=== PATIENT | male | born 1975 | race Caucasian/White ===

== ENCOUNTER 2020-04-11 10:15 | Emergency (ER) | payer MEDICAID, SELFPAY ==
[2020-04-11 10:17] VITALS: BP 114/56; PULSE 107; RESP 18; TEMP 36.1; O2SAT 94; BMI 38.0
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
[2020-04-11] MEDS: Ketorolac 60 MG/2 ML Vial IM (10:45)
[2020-04-11] MEDS: Orphenadrine 60 MG/2 ML Ampul IM (10:45)
== END 2020-04-11 11:17 | disposition home or self-care (01) ==
LOC: ED 10:52
PROVIDERS: Emergency Provider Emergency Medicine; PCP Internal Medicine
DX: M54.2 Cervicalgia (principal); R20.0 Anesthesia of skin; G89.29 Other chronic pain; Z72.0 Tobacco use
CPT/HCPCS: 96372; 99282

== ENCOUNTER 2020-04-29 16:42 | Emergency (ER) | payer MEDICAID, SELFPAY ==
[2020-04-29 16:43] VITALS: BP 113/91; PULSE 18; RESP 14; TEMP 36.6; O2SAT 97; BMI 32.0
--- NOTE | 2020-04-29 16:47 | RAD_ITS ---
STUDY: X-RAY CHEST REASON FOR EXAM: Male, 44 years old. Patient thinks he swallowed a nail. TECHNIQUE: Single AP portable view of the chest. COMPARISON: 09/01/2012. FINDINGS: No opaque foreign body is seen within the confines of the study. The lungs are clear and expanded. There is no demonstrated pleural abnormality. Normal size heart. Normal mediastinum and marc. Normal visualized pulmonary arteries. Normal visualized aortic arch and descending thoracic aorta. No visualized osseous changes. There is no demonstrated abnormality of the visualized soft tissue structures of the upper abdomen. RAD/Chest 1 View IMPRESSION: 1. No evidence of a nail or other opaque foreign body. 2. No acute cardiopulmonary disease or major interval change. Electronically Signed: Eric Ralph DO at 17:05 EDT Tel [phone], Service support ,
--- NOTE | 2020-04-29 16:47 | RAD_ITS ---
STUDY: X-RAY - SOFT TISSUE NECK REASON FOR EXAM: Male, 44 years old. Patient thinks he swallowed a nail. TECHNIQUE: 2 view(s) of the neck were obtained. COMPARISON: Chest, 04/29/2020. FINDINGS: Normal visualized nasopharynx, oropharynx, hypopharynx. Normal epiglottis. Normal visualized subglottic tracheal air column. Normal prevertebral soft tissue structures. Normal visualized osseous structures. The soft tissue structures are unremarkable. There is no foreign body other than a tongue piercing. RAD/Neck for Soft Tissue IMPRESSION: No evidence of nail or other foreign body within the airway or esophagus. Electronically Signed: Eric Ralph DO at 17:06 EDT Tel [phone], Service support ,
--- NOTE | 2020-04-29 18:31 | ED.DCSUM_ITS ---
History of Present Illness Chief Complaint: Foreign Body Informant: Patient Narrative: 44-year-old male presents with concern he swallowed a nail. He states he was holding miya nails in his mouth while he was trying to put shingles on a roof. Concerned that he swallowed 1. He has foreign body sensation in his throat. He states that he has some nausea and a metallic taste in his mouth. He states he has abdominal pain but he feels like it is musculoskeletal because he works hard. - Past Medical History (1) Antisocial personality disorder Status: Chronic Past Medical History - Allergies and Home Meds Allergies/Adverse Reactions: Allergies nickel Allergy (Verified 04/29/20 16:43) Rash poison be extract Allergy (Verified 04/29/20 16:43) Rash Primary Care Physician: Jeancarlos Stafford MD [Primary Care Provider] - Past Medical History: - - Reviewed and problem list Surgical History: noncontributory Lives: Spouse/ Significant Other Smoking Status: Current every day smoker Drugs: None Review of Systems General: Denies: Chills, Fever, Sweats Eyes: Denies: Visual changes - bilaterally, Diplopia ENT: Denies: Rhinorrhea, Sore throat Cardiovascular: Denies: Chest pain, Palpitations Respiratory: Denies: Dyspnea, Cough, Dyspnea on exertion Gastrointestinal: Reports: Abdominal pain - Generalized, Nausea. Denies: Vomiting Genitourinary: Denies: Dysuria, Hematuria Musculoskeletal: Denies: Myalgias, Arthralgias Skin: Denies: Rash, Abscess Neurological: Denies: Headache Physical Exam Vital Signs/Narrative: Vital Signs Temp Pulse Resp BP Pulse Ox 04/29/20 16:43 97.8 F 18 L 14 113/91 H 97 Inital Vital Signs reviewed: Yes General: Well nourished, No Acute Distress Head: Normocephalic Eyes: Perrl, EOMI ENT: Moist mucous membranes Cardiovascular: Regular rate, Regular rhythm Respiratory: No distress Abdomen: Soft, Nontender. Negative for: Guarding, Rebound tenderness Back: Nontender Extremities: No edema, Tenderness Skin: Normal color, No rash Neurological: Alert, Oriented x3 Psychological: Normal affect Diagnostic/Tx/Re-eval Clinical Impression(s) from Imaging Studies Chest X-Ray 04/29/20 16:47 IMPRESSION: 1. No evidence of a nail or other opaque foreign body. 2. No acute cardiopulmonary disease or major interval change. Electronically Signed: Eric [place] nicci at 17:05 EDT Tel [phone], Service support , Soft Tissue Neck X-Ray 04/29/20 16:47 IMPRESSION: No evidence of nail or other foreign body within the airway or esophagus. Electronically Signed: Eric Ralph DO at 17:06 EDT Tel [phone], Service support , KUB X-Ray 04/29/20 18:40 IMPRESSION: Normal x-ray examination of the abdomen and pelvis. There is no opaque foreign body within the abdomen. Electronically Signed: Eric Ralph DO at 19:03 EDT Tel [phone], Service support , - Medical Decision Making 44-year-old male presents for concern that he swallowed a miya nail. He had x-rays of the neck, asked, abdomen. There are no foreign bodies noted. Patient counseled on findings. Will be discharged home in stable condition. Impression: 1. Feared complaint not found ED Disposition - Plan for ED Patient: Disposition: Home or Assisted Living Instructions: ED No Diagnosis Referrals: Jeancarlos Stafford MD [Primary Care Provider] -
--- NOTE | 2020-04-29 18:40 | RAD_ITS ---
STUDY: X-RAY - ABDOMEN/PELVIS REASON FOR EXAM: Male, 44 years old. Nausea. Patient thinks he swallowed a nail. TECHNIQUE: Two AP supine views of the abdomen and pelvis. COMPARISON: None. FINDINGS: Normal visualized lung bases. There is an unremarkable bowel gas pattern. There is no demonstrated free abdominal air. The visualized liver, spleen and kidneys are grossly normal in size and morphology. There are calcified phleboliths in the pelvis. Normal visualized osseous structures. RAD/Abdomen Single View IMPRESSION: Normal x-ray examination of the abdomen and pelvis. There is no opaque foreign body within the abdomen. Electronically Signed: Eric Ralph DO at 19:03 EDT Tel [phone], Service support ,
== END 2020-04-29 19:35 | disposition home or self-care (01) ==
PROVIDERS: Emergency Provider Student in an Organized Health Care Education/Training Program; PCP Internal Medicine
DX: Z71.1 Person with feared health complaint in whom no diagnosis is made (principal); R10.84 Generalized abdominal pain; F17.200 Nicotine dependence, unspecified, uncomplicated; Z79.899 Other long term (current) drug therapy
CPT/HCPCS: 70360; 71045; 74018; 99282

== ENCOUNTER 2020-11-03 15:26 | Emergency (ER) | payer MEDICAID, SELFPAY ==
[2020-11-03 15:26] VITALS: BP 115/70; PULSE 82; RESP 18; TEMP 36.6; O2SAT 98; BMI 36.0
--- NOTE | 2020-11-03 16:29 | ED.DCSUM_ITS ---
- ER Visit Summary Date of Service: 11/03/20 Chief Complaint: Dental pain and facial swelling History of Present Illness: The patient is a [address] Stafford and Dr. Stewart. He has left maxillary swelling that began yesterday. Today his left maxillary first premolar broke off and was in my hand. States he has a dull, aching pain since in severity. Is worsened by eating, hot, or cold temperatures. Has not taken anything for pain. On review of system patient plain subjective fever and chills as well as nausea. He is not vomited. He ports that his tooth is giving me a headache. Physical Examination: Vitals: Stable. Afebrile. Mouth: No trismus. No edema of the floor of the mouth. Pain with percussion of left maxillary first premolar which is broken off at the gumline. There is obvious facial swelling. There is no focal abscess. General: A&O x 3. NAD. Cardiovascular exam: Regular rate and rhythm, no murmur, rub or gallop. Respiratory exam: Clear to auscultation bilaterally. No wheezes or stridor. Abdominal exam: Soft, nontender, nondistended, normal bowel sounds. No peritoneal signs. Extremity: No clubbing, cyanosis, or edema. Emergency Department Course and Treatment: Patient was treated with Zofran, naproxen, Franklin, and clindamycin. Treatment Plan: Patient be discharged on the above medications instructed to follow-up with his dentist soon as possible. Return to the emergency department for any worsening symptoms. Disposition: To home in improved and stable condition. Impression: 1. Dental abscess. This note was generated with [employer] dictation software. It may contain incorrect words, spelling, and punctuation that were not noted in review of the chart prior to signing ED Disposition - Plan for ED Patient: Instructions: ED Dental Abscess Prescriptions: Clindamycin HCl [Cleocin] 300 mg PO Q6H #40 capsule Naproxen [Naprosyn] 500 mg PO BID #14 tablet Hydrocodone Bitart/Apap 5-325 [Franklin 5MG-325MG] 1 tablet PO Q4H PRN PRN 2 Days #10 tablet PRN Reason: Pain Ondansetron [Zofran Odt] 4 mg PO Q8H PRN PRN #10 tablet PRN Reason: Nausea Referrals: Dentist,Your [STAFF PHYSICIAN] - As soon as possible
[2020-11-03] MEDS: Ondansetron ODT 4 MG Tablet PO (16:47)
[2020-11-03] MEDS: HYDROcodone Bitartrate/Apap 5/325 Tablet PO (16:47)
[2020-11-03] MEDS: Naproxen 250 MG Tablet 500 MG PO (16:48)
[2020-11-03] MEDS: Clindamycin HCl 150 MG Capsule 300 MG PO (16:48)
[2020-11-03 16:56] VITALS: BP 115/70; PULSE 82; PULSE 84; RESP 16; RESP 18; TEMP 36.6; O2SAT 97; O2SAT 98
== END 2020-11-03 16:58 | disposition home or self-care (01) ==
LOC: ED 16:48
PROVIDERS: Emergency Provider Emergency Medicine; PCP Internal Medicine
DX: K04.7 Periapical abscess without sinus (principal); S02.5XXA Fracture of tooth (traumatic), initial encounter for closed fracture; X58.XXXA Exposure to other specified factors, initial encounter; Y93.9 Activity, unspecified; Y92.9 Unspecified place or not applicable; Y99.9 Unspecified external cause status; R11.0 Nausea; R51.9 Headache, unspecified; Z72.0 Tobacco use; Z79.899 Other long term (current) drug therapy
CPT/HCPCS: 99283

== ENCOUNTER 2022-05-22 12:38 | Emergency (ER) | payer OTHER, SELFPAY ==
[2022-05-22 12:39] VITALS: BP 120/97; PULSE 104; RESP 16; TEMP 36.3; O2SAT 96; BMI 47.1
--- NOTE | 2022-05-22 13:03 | EX.ED.DYSGE1 ---
HPI History of Present Illness Chief Complaint: Abscess Narrative Narrative: Patient presents with right inner thigh abscess for 2 days. No fevers or chills. He has had multiple in the past. PFSH PFSH Home Medications cyclobenzaprine 10 mg tablet 10 mg PO TID PRN Muscle Spasm #20 tabs 04/11/20 [Rx Last Taken Unknown] naproxen 500 mg tablet 500 mg PO BID #14 tabs 04/11/20 [Rx Last Taken Unknown] clindamycin HCl 300 mg capsule 300 mg PO Q6H #40 caps 11/03/20 [Rx Last Taken Unknown] naproxen 500 mg tablet 500 mg PO BID #14 tabs 11/03/20 [Rx Last Taken Unknown] ondansetron 4 mg disintegrating tablet 4 mg PO Q8H PRN PRN Nausea #10 tabs 11/03/20 [Rx Last Taken Unknown] doxycycline hyclate 100 mg capsule 100 mg PO BID #20 caps 05/22/22 [Rx Last Taken Unknown] Allergy/AdvReac Type Severity Reaction Status Date / Time nickel Allergy Rash Verified 11/03/20 15:28 poison be extract Allergy Rash Verified 11/03/20 15:28 Social History Smoking Status: Current every day smoker ROS ROS ED ROS Narrative Past medical history: none Medications: Reviewed Social history: Noncontributory Review of systems: Musculoskeletal: Right inner thigh abscess Skin: As above Neurological: No weakness or paresthesias Hematologic: No easy bleeding or easy bruising EXAM Physical Exam Narrative Exam Narrative: Physical exam General: Patient does not appear in significant distress . Head: Normocephalic, Atraumatic Neck: No C-spine tenderness Cardiovascular: Normal distal pulses Back: Nontender, Normal Inspection. Extremities: Right inner thigh abscess about 6 cm in diameter, very slight surrounding cellulitis. Skin: Cellulitis as above Neurological: Normal strength and sensation Const Vital Signs: 05/22/22 12:39 Temperature 97.3 F L Temperature Source Temporal Pulse Rate 104 H Respiratory Rate 16 Blood Pressure 120/97 H Blood Pressure Mean 104 Pulse Ox 96 Oxygen Delivery Method Room Air MDM MDM MDM Narrative Medical decision making narrative: Abscess was drained. I will discharge the patient with antibiotics Procedures Other Procedures Procedure(s): Incision and drainage Verbal consent 1% lidocaine, I cleaned the wound prior to incision 11. Blade I made a 1 cm incision I used hemostats to probe and expectorate the pus, moderate amount of pus was expectorated. I broke all the loculations. Patient tolerated procedure well. Discharge Plan Triage Chief Complaint: Abscess ED Provider: Alec Aragon Dx/Rx/DC Orders Clinical Impression: Abscess, Cellulitis Instructions: Abscess Drainage Prescriptions: New doxycycline hyclate 100 mg capsule 100 mg PO BID Qty: 20 0RF No Action cyclobenzaprine 10 MG tablet 10 mg PO TID PRN (Reason: Muscle Spasm) Qty: 20 0RF naproxen 500 MG tablet 500 mg PO BID Qty: 14 0RF clindamycin HCl 300 MG capsule 300 mg PO Q6H Qty: 40 0RF ondansetron 4 MG tablet 4 mg PO Q8H PRN PRN (Reason: Nausea) Qty: 10 0RF naproxen 500 MG tablet 500 mg PO BID Qty: 14 0RF Primary Care Provider: Jeancarlos Stafford Referrals: Jeancarlos Stafford MD [Primary Care Provider] - 3-5 Days Disposition Disposition: Home, Self Care
== END 2022-05-22 13:20 | disposition home or self-care (01) ==
PROVIDERS: Emergency Provider Emergency Medicine; Visit Provider Emergency Medicine
DX: L02.415 Cutaneous abscess of right lower limb (principal); F17.200 Nicotine dependence, unspecified, uncomplicated
CPT/HCPCS: 10060; 99282

== ENCOUNTER 2023-06-21 12:42 | Emergency (ER) | payer MEDICAID, SELFPAY ==
[2023-06-21 12:42] VITALS: BP 121/87; PULSE 99; RESP 18; TEMP 35.7; O2SAT 98; BMI 45.8
--- NOTE | 2023-06-21 14:32 | EDS_ITS ---
HPI History of Present Illness Chief Complaint: Back Narrative Narrative: 47-year-old male presenting with back pain. Its in between his neck and his shoulder blade on the right. He states he feels like he has a pinched nerve. He had this before. He states that usually give him a concoction of medicine to help with the spasm. Patient denies any direct trauma. He has no numbness or tingling. Patient also states he has right elbow pain. He thinks he may have struck it on something. He has swelling to the olecranon. He also states that he probably leans on it a lot. Does notice some signs or symptoms. He notes that it is swollen. PFSH PFSH Home Medications cyclobenzaprine 10 mg tablet 10 mg PO TID PRN Muscle Spasm #20 tabs 04/11/20 [Rx Last Taken Unknown] naproxen 500 mg tablet 500 mg PO BID #14 tabs 04/11/20 [Rx Last Taken Unknown] clindamycin HCl 300 mg capsule 300 mg PO Q6H #40 caps 11/03/20 [Rx Last Taken Unknown] naproxen 500 mg tablet 500 mg PO BID #14 tabs 11/03/20 [Rx Last Taken Unknown] ondansetron 4 mg disintegrating tablet 4 mg PO Q8H PRN PRN Nausea #10 tabs 11/03/20 [Rx Last Taken Unknown] doxycycline hyclate 100 mg capsule 100 mg PO BID #20 caps 05/22/22 [Rx Last Taken Unknown] naproxen 500 mg tablet (Naprosyn) 500 mg PO BID PRN pain #20 tabs 06/21/23 [Rx Last Taken Unknown] tizanidine 4 mg tablet 4 mg PO Q8H PRN muscle spasticity #20 tabs 06/21/23 [Rx Last Taken Unknown] Allergy/AdvReac Type Severity Reaction Status Date / Time nickel Allergy Rash Verified 06/21/23 12:43 poison be extract Allergy Rash Verified 06/21/23 12:43 Social History Smoking Status: Current every day smoker tobacco type: cigarettes ROS ROS ED Constitutional Constitutional ED: Denies chills, fever(s) or sweats Eyes Eyes: Denies blurry vision or change in vision ENT ENT ED: Denies ear pain or sore throat Cardiovascular Cardiovascular: Denies chest pain, palpitations or racing heartbeat Respiratory/Chest Respiratory/Chest: Denies cough, dyspnea or sputum Gastrointestinal Gastrointestinal: Denies abdominal pain, constipation, diarrhea, nausea or vomiting Genitourinary Genitourinary ED: Denies dysuria, hematuria or urinary frequency Musculoskeletal Musculoskeletal: Reports back pain; Denies arthralgias, myalgias or neck pain Integumentary Reports other Details: Swollen right olecranon ; Denies abscess, Abrasions or rash Neurologic Neurologic: Denies headache(s), paresthesias or weakness Psychiatric Psychiatric: Denies anxiety, depression, suicidal ideation or suicidal thoughts Endocrine Endocrinology: Denies polydipsia or polyuria EXAM Physical Exam Const Vital Signs: 06/21/23 12:42 06/21/23 14:33 Temperature 96.2 F L Temperature Source Temporal Pulse Rate 99 83 Respiratory Rate 18 18 Blood Pressure 121/87 H 117/84 H Blood Pressure Mean 98 95 Pulse Ox 98 96 Oxygen Delivery Method Room Air Room Air Positive well nourished General Appearance ED: NAD HEENT Reports moist mucous membranes Eyes PERRL and EOMs intact bilaterally Resp normal respiratory effort Cardio regular rate and regular rhythm Back/Spine Back/Spine Narrative: Tenderness palpation in the right trapezius. There is no focal cervical or thoracic spinal tenderness or deformity, step-off. No pain in the right shoulder. Extremity Extremity Narrative: There is some tenderness and slight swelling over the right olecranon although its not hot. Patient is full range of motion. This does not appear to be a septic joint. Neuro Motor Exam: strength 5/5 throughout Psych mental status grossly normal Skin Skin Narrative: As documented above MDM MDM MDM Narrative Medical decision making narrative: Patient presenting with symptoms of cervical strain. He states they usually give him a concoction for this. I asked him if it was Norflex and Toradol he believes it is. He was given this. Patient also states he has some pain in the right elbow. It looks like he has olecranon bursitis but I do not believe it is infected. Its not hot. He does not have a septic joint. I will give him follow-up with orthopedics for this. I recommended compression on this and ordered him an Good wrap. Patient discharged home with prescription for muscle relaxers and Naprosyn. Discharged in stable condition. Impression: 1. Olecranon bursitis 2. Cervical strain Lab Data Attestation: I reviewed the patient's lab results. Discharge Plan Triage Chief Complaint: Back ED Provider: Bob Thurman Dx/Rx/DC Orders Instructions: ED Neck Sprain or Strain, ED Bursitis Elbow Olecranon Prescriptions: New tizanidine 4 mg tablet 4 mg PO Q8H PRN (Reason: muscle spasticity) Qty: 20 0RF naproxen [Naprosyn] 500 mg tablet 500 mg PO BID PRN (Reason: pain) Qty: 20 0RF No Action cyclobenzaprine 10 MG tablet 10 mg PO TID PRN (Reason: Muscle Spasm) Qty: 20 0RF naproxen 500 MG tablet 500 mg PO BID Qty: 14 0RF clindamycin HCl 300 MG capsule 300 mg PO Q6H Qty: 40 0RF ondansetron 4 MG tablet 4 mg PO Q8H PRN PRN (Reason: Nausea) Qty: 10 0RF naproxen 500 MG tablet 500 mg PO BID Qty: 14 0RF doxycycline hyclate 100 mg capsule 100 mg PO BID Qty: 20 0RF Primary Care Provider: Danette Maurer NP Referrals: Prasanna Zaldivar MD [Med Staff - Active Staff] - 3-5 Days if not improving Danette Maurer PRODUCTION SUPPORT MANAGER, PRODUCTION SUPPORT MANAGER-C [Primary Care Provider] - Disposition Disposition: Home, Self Care
[2023-06-21 14:33] VITALS: BP 117/84; PULSE 83; RESP 18; O2SAT 96
[2023-06-21] MEDS: Ketorolac 15 MG/ML Vial IM (14:38)
[2023-06-21] MEDS: Orphenadrine 60 MG/2 ML Ampul IM (14:38)
== END 2023-06-21 14:55 | disposition home or self-care (01) ==
PROVIDERS: Emergency Provider Student in an Organized Health Care Education/Training Program; PCP Nurse Practitioner; Visit Provider Student in an Organized Health Care Education/Training Program
DX: S16.1XXA Strain of muscle, fascia and tendon at neck level, initial encounter (principal); M70.21 Olecranon bursitis, right elbow; X58.XXXA Exposure to other specified factors, initial encounter; F17.210 Nicotine dependence, cigarettes, uncomplicated
CPT/HCPCS: 96372; 99282

== ENCOUNTER 2023-07-04 14:46 | Outpatient (RCR) | payer MEDICAID, SELFPAY ==
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
--- NOTE | 2023-12-21 12:22 | HP.PT.NRP ---
Patient Information Patient Information: JAJA ASKEW was seen in my office for initial evaluation on 07/04/23. The following Plan of Care was established for this patient: POC Established Initial Frequency: 2x /Week Initial Duration: 4 Weeks Anticipated Interventions Patient/Client Instruction: Educate patient on: Condition and Plan of Care For the Purpose of:: To decrease pain, To increase ROM, To improve muscle performance and motor function, To improve ability to perform ADL's, To improve ability of physical actions for home/community/work/leisure, To improve health of tissue, To decrease soft tissue restriction, To increase flexibility/ROM and To reduce risk of recurrence Therapeutic Exercise to Include: Strength training, Postural training, Flexibilty training, Active ROM and Scapular Strength/Stabilization For the Purpose of:: To decrease pain, To increase ROM, To improve muscle performance and motor function, To improve ability to perform ADL's, To increase tolerance to activity/condition/position, To improve ability of physical actions for home/community/work/leisure, To improve health of tissue, To decrease soft tissue restriction and To increase flexibility/ROM Manual Therapy Techniques to Include: Mobilization Comment: MANUAL TRACTION For the Purpose of:: To decrease pain, To increase ROM, To improve muscle performance and motor function, To increase tolerance to activity/condition/position, To improve ability of physical actions for home/community/work/leisure, To improve health of tissue, To decrease soft tissue restriction and To increase flexibility/ROM TENS: Yes IF ES: Yes Cryotherapy (ice pack, ice massage): Yes Thermo therapy (hot pack): Yes Ultrasound (thermal/non thermal): Yes Intermittent cervical traction: Yes For the Purpose of:: To decrease pain, To increase ROM, To improve nutrient delivery to tissue, To increase oxygenation perfusion, To improve health of tissue, To decrease soft tissue restriction and To increase flexibility/ROM Last Seen Last Seen: This patient was last seen in our office . Pertinent comments regarding their Physical therapy will appear below: Patient was seen for PT for cervical radiculopathy but Evaluation At this point I will be discontinuing this patient from physical therapy. I would be happy to see this patient again in the future if found appropriate by the physician. Thank you! Rickie Alcantara, PT, Cert MDT, OCS Balance/Gait/Functional tests Balance/Special Test Scores Oswestry Neck Score: 24
== END 2023-07-04 19:00 | disposition home or self-care (01) ==
LOC: PT 14:46
PROVIDERS: PCP Nurse Practitioner; Referring Provider Orthopaedic Surgery Orthopaedic Surgery of the Spine; Visit Provider Orthopaedic Surgery Orthopaedic Surgery of the Spine
DX: M54.12 Radiculopathy, cervical region (principal)
CPT/HCPCS: 97012; 97162

== ENCOUNTER 2025-07-17 17:53 | Emergency (ER) | payer MEDICAID, SELFPAY ==
[2025-07-17 17:54] VITALS: BP 129/69; PULSE 104; RESP 18; TEMP 36.8; O2SAT 97; BMI 36.4
[2025-07-17 21:14] VITALS: BP 153/92; PULSE 85; RESP 18; O2SAT 96
--- NOTE | 2025-07-17 21:27 | CT_ITS ---
PROCEDURE: ABDOMEN/PELVIS W IV CONT ONLY 07/17/2025 REASON FOR EXAM: UMBILICAL HERNIA TECHNIQUE: Procedure Code: [id number] Modality: CT Procedure: ABDOMEN/PELVIS W IV CONT ONLY Coronal and Sagittal reconstruction series were provided. CONTRAST: VOLUME: mL One or more dose reduction techniques were used (e.g., Automated exposure control, adjustment of the mA and/or kV according to patient size, use of iterative reconstruction technique. FINDINGS: The visualized lung bases are clear. Circumferential thickening of the distal esophagus concerning for esophagitis. The liver, gallbladder, pancreas, spleen, adrenal glands, kidneys, and urinary bladder appear unremarkable. No evidence of a bowel obstruction. Mild wall thickening of a segment of sigmoid colon is concerning for mild colitis. Several diverticula are seen within the sigmoid colon without adjacent inflammatory changes to suggest overt diverticulitis. The appendix is visualized and unremarkable. No intraperitoneal free air or free fluid. No abdominal nor pelvic lymphadenopathy. A large fat-containing umbilical hernia is present. Mild atherosclerotic calcifications. No acute osseous abnormality. No acute fracture. CT/Abdomen/Pelvis W IV Cont ONLY IMPRESSION: Circumferential thickening of the distal esophagus concerning for esophagitis. Mild wall thickening of a segment of sigmoid colon concerning for mild colitis. Sigmoid diverticulosis without CT evidence of overt diverticulitis. Large fat-containing umbilical hernia. Reading Location: [id number]
--- NOTE | 2025-07-17 21:31 | EX.ED.DYSGE1 ---
HPI History of Present Illness Chief Complaint: Abd Pain Narrative Narrative: Chief complaint and HPI: 49-year-old male with no significant past medical history presents for evaluation of umbilical hernia. Patient states he has had an umbilical hernia for several years. States the last couple days it has appeared larger and more painful. He denies any fever, chills, nausea, vomiting, diarrhea, constipation, dysuria. Review of systems: See HPI Medications: As listed on the chart Allergies: As listed on the chart PFSH: Per chart Vital signs: As listed on the chart. Reviewed. Physical exam: Gen: A&O x3, NAD Head: Normocephalic, atraumatic Eyes: No sclera icterus, conjunctiva clear ENT: Moist mucous membranes CV: RRR, no murmurs Resp: Lungs CTA BL, no w/r/c GI: Abd soft, non-distended, umbilical hernia mildly tender to palpation without overlying skin changes-easily reducible and able to palpitate fascial defect, no rebound or rigidity Musc: Full ROM, no deformity Skin: Warm, dry Neuro: Alert, oriented, grossly intact, sensation intact Psych: Cooperative, appropriate mood and affect [facility] Medical History (Updated 07/17/25 @ 21:16 by Dana Mireles) Marijuana smoker Home Medications ?Medication ?Instructions ?Recorded ?Last Taken ?Type NK 07/17/25 Unknown History Allergy/AdvReac Type Severity Reaction Status Date / Time nickel Allergy Rash Verified 07/17/25 17:55 poison be extract Allergy Rash Verified 07/17/25 17:55 Surgical History Hx of left knee surgery Hx of hernia repair Social History Smoking Status: Current every day smoker tobacco type: cigarettes EXAM Physical Exam Const Vital Signs: 07/17/25 17:54 07/17/25 21:14 07/17/25 22:58 Temperature 98.2 F Temperature Source Oral Pulse Rate 104 H 85 83 Respiratory Rate 18 18 16 Blood Pressure 129/69 H 153/92 H 133/94 H Blood Pressure Mean 89 112 107 Pulse Ox 97 96 98 Oxygen Delivery Method Room Air Room Air Room Air MDM MDM MDM Narrative Medical decision making narrative: 49-year-old male with no significant past medical history presents for evaluation of umbilical hernia. Patient states he has had an umbilical hernia for several years. States the last couple days it has appeared larger and more painful. On physical exam, patient's hernia is easily reducible. Mildly tender. Differential diagnosis includes but is not limited to symptomatic reducible hernia, incarcerated hernia, suspect less likely strangulated hernia. Laboratory workup ordered including CT abdomen pelvis. Morphine and NS bolus ordered. CBC without leukocytosis or anemia. CMP relatively unremarkable without any VINOD, transaminitis, hyperbilirubinemia. Lipase unremarkable. Lactic acid unremarkable. UA negative for UTI. CT abdomen pelvis showed circumferential thickening of the distal esophagus concerning for dermatitis. Mild wall thickening of the segment of sigmoid colon concerning for mild colitis. Patient not having any lower abdominal pain, diarrhea, constipation does not fit clinically. Sigmoid diverticulosis without diverticulitis. Large fat-containing umbilical hernia. Patient symptoms are likely secondary to his known umbilical hernia. Hernia is not incarcerated or strangulated. Easily reducible. Follow-up with general surgery. Return precautions explained. He confirmed understand the plan. Patient will discharge home. Impression: 1. Umbilical hernia pain 2. Reducible umbilical hernia Lab Data Labs: Laboratory Results - last 24 hr 07/17/25 07/17/25 07/17/25 21:13 21:36 22:38 WBC 7.9 RBC 4.89 Hgb 15.3 Hct 45.1 MCV 92.2 MCH 31.3 MCHC 33.9 RDW Std Deviation 43.5 RDW Coeff of Subhash 12.9 Plt Count 317 MPV 9.4 Immature Gran % (Auto) 0.400 Neut % (Auto) 52.8 Lymph % (Auto) 36.4 Glynn % (Auto) 6.2 Eos % (Auto) 3.2 Baso % (Auto) 1.0 Absolute Neuts (auto) 4.2 Absolute Lymphs (auto) 2.86 Nucleated RBC % 0 Sodium 135 Potassium 3.8 Chloride 102 Carbon Dioxide 17.7 L Anion Gap 16 H BUN 7 Creatinine 0.82 Estim Creat Clear Calc 127.40 Est GFR (MDRD) Non-Af 106 BUN/Creatinine Ratio 8.1 L Glucose 157 H Lactic Acid 1.2 Calcium 8.0 Total Bilirubin < 0.15 AST 22 ALT 25 Alkaline Phosphatase 78 Total Protein 4.8 L Albumin 3.9 Globulin 1.0 L Albumin/Globulin Ratio 4.0 H Lipase 8 L Urine Color Yellow Urine Clarity Sl. Cloudy Urine pH 6.5 Ur Specific Mio 1.010 Urine Protein Negative Urine Glucose (UA) Normal Urine Ketones Negative Urine Occult Blood 10 H Urine Nitrite Negative Urine Bilirubin Negative Urine Urobilinogen Normal Ur Leukocyte Esterase 25 H Urine RBC 0-5 SEEN Urine WBC 5-10 SEEN Ur Squamous Epith Cells 0-5 SEEN Urine Bacteria 0 SEEN Urine Mucus 0 SEEN Radiography Diagnostic Testing: Clinical Impression(s) from Imaging Studies Abdomen/Pelvis CT 07/17/25 21:27 IMPRESSION: Circumferential thickening of the distal esophagus concerning for esophagitis. Mild wall thickening of a segment of sigmoid colon concerning for mild colitis. Sigmoid diverticulosis without CT evidence of overt diverticulitis. Large fat-containing umbilical hernia. Reading Location: [facility] Discharge Plan Triage Chief Complaint: Abd Pain ED Provider: Richardson Stewart Dx/Rx/DC Orders Prescriptions: No Action NK Primary Care Provider: Danette Burciaga NP Referrals: Danette Burciaga NP, [facility] [Primary Care Provider, Medical] Print Language: Ukrainian
[2025-07-17] MEDS: 0.9% Normal Saline (1000mL) 1,000 ML 999 ML IV (21:35)
[2025-07-17 21:37] LABS: Hematocrit 45.1 % (40-54); Hemoglobin 15.3 g/dL (13.0-16.5); Immature Granulocytes Count 0.030 X10^3/uL (0.0-0.0); Mean Corp Hgb Conc 33.9 g/dL (32-36); Mean Corpuscular Volume 92.2 fL (80-94); Mean Platelet Vol. 9.4 fl (6.2-12.0); NRBC Flagged by Analyzer 0 % (0-5); Platelet Count 317 K/mm3 (150-450); RBC Distribution Width CV 12.9 % (11.6-14.6); RBC Distribution Width SD 43.5 fl (35.1-43.9); Red Blood Count 4.89 M/mm3 (4.6-6.2); White Blood Count 7.9 K/mm3 (4.4-11.0)
[2025-07-17 21:46] LABS: Lipase 8 U/L (13-75)
[2025-07-17 21:48] LABS: AST(SGOT) 22 U/L (<=37); Alanine Aminotransfer ALT/SGPT 25 U/L (<=46); Albumin, Serum 3.9 g/dL (3.5-5.0); Alkaline Phosphatase 78 U/L (40-129); Anion Gap 16 (5-15); BUN 7 mg/dL (4-19); BUN/Creat Ratio 8.1 RATIO (10-20); Calcium,Total 8.0 mg/dL (7.6-11.0); Carbon Dioxide 17.7 mmol/L (21.0-32.0); Chloride 102 mmol/L (98-108); Estimated Creatinine Clearance 127.40 ml/min (50-250); Globulin 1.0 g/dL (2.2-4.2); Glucose 157 mg/dL (70-99); Potassium 3.8 mmol/L (3.3-5.1)
--- OUTSIDE RECORDS SUMMARY | 2025-07-17 22:13 | XMS RPT_ITS | CCD ---
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 sounds. No murmur heard. Pulmonary: Effort: Pulmonary effort is normal. Breath sounds: Normal breath sounds. No wheezing, rhonchi or rales. Musculoskeletal: Thoracic back: Tenderness present. No deformity. Decreased range of motion. Lumbar back: Tenderness present. No deformity. Decreased range of motion. Skin: General: Skin is warm and dry. Coloration: Skin is not jaundiced. Neurological: Mental Status: He is alert. Motor: Motor function is intact. Gait: Gait is intact. Psychiatric: Mood and Affect: Mood normal. Behavior: Behavior normal. Health maintenance reviewed with patient: Hepatitis B Vaccine(1 of 3 - 3-dose series) Never done Pneumococcal Vaccine(1 of 2 - PCV) Never done Hepatitis A Vaccine(1 of 2 - Risk 2-dose series) Never done Colorectal Cancer Screening Never done Covid-19 Vaccine(2 - 2022- season) due on 05/11/2023 Depression Assessment due on 09/10/2023 Influenza Vaccine(1) due on 03/09/2024 DTaP,Tdap,Td Vaccine(1 - Tdap) due on 03/12/2024 Diabetes Screening due on 03/12/2026 Lipid Screening due on 03/12/2028 Hepatitis C Screening Completed HIV Screening Completed DATA REVIEWED: Most recent labs and imaging results. ASSESSMENT/PLAN: 1. Chronic bilateral low back pain without sciatica - ICD9: 724.2, 338.29, ICD10: M54.50, G89.29 (primary diagnosis) Symptoms stable. Patient declined referral to PT. Provided letter for patient stating chronic back pain, SOB and obesity interfere with daily activities. 2. Obesity, Class III, BMI 40-49.9 (morbid obesity) (HCC) - ICD9: 278.01, ICD10: E66.01 Weight increasing - Discussed need for and benefit of weight loss BMI Readings from Last 1 Encounters: 10/15/23 : 46.46 kg/m - Begin healthy diet consisting of fruits, vegetables and lean proteins. Reduce sugary drinks of artificial juices and sodas and replace with water and low calorie Crystal Light. Healthy Snack alternatives have been discussed - Begin exercise or meaningful activity for 20 minutes at lest 3 times a day 3. Shortness of breath - ICD9: 786.05, ICD10: R06.02 Multifactorial. Chest x-ray negative. Recommend scheduling PFT's to evaluate further, patient agreeable. 4. Hepatitis C virus infection without hepatic coma, unspecified chronicity - ICD9: 070.70, ICD10: B19.20 He has transportation issues. Agreeable to treatment by clinical pharmacist. - CONSULT TO HEPATITIS C AMBULATORY CLINIC PHARMACY 5. Umbilical hernia without obstruction and without gangrene - ICD9: 553.1, ICD10: K42.9 - CONSULT TO GENERAL SURGERY 6. Tobacco use disorder - ICD9: 305.1, ICD10: F17.200 - Cessation encouraged. - Physiologic and physical aspects of tobacco addiction as well as strategies for quitting were discussed. - Counseling was given focusing on the harmful effects of this addiction especially given the patient's medical condition(s) which will be worsened because of the chemicals in tobacco. - no desire to quit at this time 7. Encounter for immunization - ICD9: V03.89, ICD10: Z23 - PFIZER-BIONTCalpian COVID-19 VACCINE ( SEASON) AGE 12+ YR Prescription instructions reviewed with patient as applicable. Potential red flag symptoms discussed with the patient. Reviewed appropriate action plan to take if red flag symptoms occur. Patient agreeable to treatment plan. Danette Burciaga APRN.SUPERVISOR LATHING documented in this encounter [facility] 06-21-2023 Discharge summary Note Date/Time June 21, 2023 2:37pm [facility] Medical Records Department [address] [place] [id number] Emergency Department Summary 06/21/23 MR#: [id number] Acct: [id number] Name: JAJA ASKEW Rep #:[id number] : 1975 47 From: Bob Thurman DO PCP: Danette Maurer [employer]-C Status:REG ER Location: ED HPI History of Present Illness Chief Complaint: Back Narrative Narrative: 47-year-old male presenting with back pain. Its in between his neck and his shoulder blade on the right. He states he feels like he has a pinched nerve. He had this before. He states that usually give him a concoction of medicine to help with the spasm. Patient denies any direct trauma. He has no numbness or tingling. Patient also states he has right elbow pain. He thinks he may have struck it on something. He has swelling to the olecranon. He also states that he probably leans on it a lot. Does notice some signs or symptoms. He notes that it is swollen. PFSH PFSH Home Medications cyclobenzaprine 10 mg tablet 10 mg PO TID PRN Muscle Spasm #20 tabs 04/11/20 [Rx Last Taken Unknown] naproxen 500 mg tablet 500 mg PO BID #14 tabs 04/11/20 [Rx Last Taken Unknown] clindamycin HCl 300 mg capsule 300 mg PO Q6H #40 caps 11/03/20 [Rx Last Taken Unknown] naproxen 500 mg tablet 500 mg PO BID #14 tabs 11/03/20 [Rx Last Taken Unknown] ondansetron 4 mg disintegrating tablet 4 mg PO Q8H PRN PRN Nausea #10 tabs 11/03/20 [Rx Last Taken Unknown] doxycycline hyclate 100 mg capsule 100 mg PO BID #20 caps 05/22/22 [Rx Last Taken Unknown] naproxen 500 mg tablet (Naprosyn) 500 mg PO BID PRN pain #20 tabs 06/21/23 [Rx Last Taken Unknown] tizanidine 4 mg tablet 4 mg PO Q8H PRN muscle spasticity #20 tabs 06/21/23 [Rx Last Taken Unknown] Allergy/AdvReac Type Severity Reaction Status Date / Time nickel Allergy Rash Verified 06/21/23 12:43 poison be extract Allergy Rash Verified 06/21/23 12:43 Social History Smoking Status: Current every day smoker tobacco type: cigarettes ROS ROS ED Constitutional Constitutional ED: Denies chills, fever(s) or sweats Eyes Eyes: Denies blurry vision or change in vision ENT ENT ED: Denies ear pain or sore throat Cardiovascular Cardiovascular: Denies chest pain, palpitations or racing heartbeat Respiratory/Chest Respiratory/Chest: Denies cough, dyspnea or sputum Gastrointestinal Gastrointestinal: Denies abdominal pain, constipation, diarrhea, nausea or vomiting Genitourinary Genitourinary ED: Denies dysuria, hematuria or urinary frequency Musculoskeletal Musculoskeletal: Reports back pain; Denies arthralgias, myalgias or neck pain Integumentary Reports other Details: Swollen right olecranon ; Denies abscess, Abrasions or rash Neurologic Neurologic: Denies headache(s), paresthesias or weakness Psychiatric Psychiatric: Denies anxiety, depression, suicidal ideation or suicidal thoughts Endocrine Endocrinology: Denies polydipsia or polyuria EXAM Physical Exam Const Vital Signs: 06/21/23 12:42 06/21/23 14:33 Temperature 96.2 F L Temperature Source Temporal Pulse Rate 99 83 Respiratory Rate 18 18 Blood Pressure 121/87 H 117/84 H Blood Pressure Mean 98 95 Pulse Ox 98 96 Oxygen Delivery Method Room Air Room Air Positive well nourished General Appearance ED: NAD HEENT Reports moist mucous membranes Eyes PERRL and EOMs intact bilaterally Resp normal respiratory effort Cardio regular rate and regular rhythm Back/Spine Back/Spine Narrative: Tenderness palpation in the right trapezius. There is no focal cervical or thoracic spinal tenderness or deformity, step-off. No pain in the right shoulder. Extremity Extremity Narrative: There is some tenderness and slight swelling over the right olecranon although its not hot. Patient is full range of motion. This does not appear to be a septic joint. Neuro Motor Exam: strength 5/5 throughout Psych mental status grossly normal Skin Skin Narrative: As documented above MDM MDM MDM Narrative Medical decision making narrative: Patient presenting with symptoms of cervical strain. He states they usually give him a concoction for this. I asked him if it was Norflex and Toradol he believes it is. He was given this. Patient also states he has some pain in theright elbow. It looks like he has olecranon bursitis but I do not believe it isinfected. Its not hot. He does not have a septic joint. I will give him follow-up with orthopedics for this. I recommended compression on this and ordered him an Good wrap. Patient discharged home with prescription for muscle relaxers and Naprosyn. Discharged in stable condition. Impression: 1. Olecranon bursitis 2. Cervical strain Lab Data Attestation: I reviewed the patient's lab results. Discharge Plan Triage Chief Complaint: Back ED Provider: Bob Thurman Dx/Rx/DC Orders Instructions: ED Neck Sprain or Strain, ED Bursitis Elbow Olecranon Prescriptions: New tizanidine 4 mg tablet 4 mg PO Q8H PRN (Reason: muscle spasticity) Qty: 20 0RF naproxen [Naprosyn] 500 mg tablet 500 mg PO BID PRN (Reason: pain) Qty: 20 0RF No Action cyclobenzaprine 10 MG tablet 10 mg PO TID PRN (Reason: Muscle Spasm) Qty: 20 0RF naproxen 500 MG tablet 500 mg PO BID Qty: 14 0RF clindamycin HCl 300 MG capsule 300 mg PO Q6H Qty: 40 0RF ondansetron 4 MG tablet 4 mg PO Q8H PRN PRN (Reason: Nausea) Qty: 10 0RF naproxen 500 MG tablet 500 mg PO BID Qty: 14 0RF doxycycline hyclate 100 mg capsule 100 mg PO BID Qty: 20 0RF Primary Care Provider: Danette Maurer NP Referrals: Prasanna Zaldivar MD [Med Staff - Active Staff] - 3-5 Days if not improving Danette Maurer [employer]GGER, [employer]ER-C [Primary Care Provider] - Disposition Disposition: Home, Self Care What to do if you have Problems For any increased pain, shortness of breath, bleeding, nausea or vomiting, chestpain, or any unexpected problems, contact your Primary Care Provider. Call [facility] ([phone]) or report to the closest Emergency Room. Call 911 if necessary. 06/21/23 1433 <Electronically signed by Bob Thurman DO> Cosigner Signature (if applicable): CC: SHAMEKA Maurer ~ Signed [facility] Work Phone: 1(367) 466-608409-21-2023 Miscellaneous Notes* Telephone Encounter - Kalyani Hernandez - 05/31/2023 10:18 AM EDT Patient has been identified by name and date of : Yes Last office visit in this department: 03/12/2023 RX INSTRUCTIONS: Patient aware RX will be sent to pharmacy. No need to notify patient. Patient phones requesting refills as follows: Requested Prescriptions Pending Prescriptions Disp Refills albuterol HFA (VENTOLIN HFA) 90 mcg/actuation inhaler 1 Each 2 Sig: Inhale 2 Puffs as instructed every 4 hours as needed for wheezing/shortness of breath. meloxicam (MOBIC) 15 mg tablet 30 tablet 1 Sig: Take 1 tablet by mouth once daily. With food. Please review and advise. Kalyain Mccord [facility] History of Past illness Narrative* Problem Noted Date Diagnosed Date Resolved Date Anxiety and depression 01/31/201803/12 Gastroesophageal reflux disease 01/31/2018 03/12/2023 Cervicalgia 03/04/2008 01/31/2018 documented as of this encounter (statuses as of 06/01/2023) [facility] History of Past illness Narrative* Problem Noted Date Diagnosed Date Resolved Date Anxiety and depression 01/31/201803/12 Gastroesophageal reflux disease 01/31/2018 03/12/2023 Cervicalgia 03/04/2008 01/31/2018 documented as of this encounter (statuses as of 10/16/2023) [facility] History of Past illness Narrative* Problem Noted Date Diagnosed Date Resolved Date Anxiety and depression 01/31/201803/12 Gastroesophageal reflux disease 01/31/2018 03/12/2023 Cervicalgia 03/04/2008 01/31/2018 documented as of this encounter (statuses as of 10/16/2023) [facility] History of Past illness Narrative* Problem Noted Date Diagnosed Date Resolved Date Anxiety and depression 01/31/201803/12 Gastroesophageal reflux disease 01/31/2018 03/12/2023 Cervicalgia 03/04/2008 01/31/2018 documented as of this encounter (statuses as of 10/24/2023) [facility] noteNo assessment information availableWKettering Health Preble Work Phone: Evaluation note* Diagnosis Chronic bilateral low back pain without sciatica- Primary Obesity, Class III, BMI 40-49.9 (morbid obesity) (HCC) Morbid obesity Shortness of breath Hepatitis C virus infection without hepatic coma, unspecified chronicity Umbilical hernia without obstruction and without gangrene Tobacco use disorder Encounter for immunization Need for other specified prophylactic vaccination against single bacterial disease documented in this encounter [facility] note* Diagnosis Chronic hepatitis C without hepatic coma (HCC)- Primary Chronic hepatitis C without mention of hepatic coma documented in this encounter [facility] note* Diagnosis Viral URI with cough- Primary Acute upper respiratory infections of unspecified site documented in this encounter [facility] note* Diagnosis Shortness of breath Chronic bilateral low back pain without sciatica documented in this encounter [facility] note* Diagnosis Wellness examination- Primary Umbilical hernia without obstruction and without gangrene Chronic hepatitis C without hepatic coma (HCC) Chronic hepatitis C without mention of hepatic coma Obesity, Class III, BMI 40-49.9 (morbid obesity) (HCC) Morbid obesity Chronic bilateral low back pain without sciatica Tobacco use disorder Screening for depression Encounter for screening examination for other mental health and behavioral disorders Encounter for immunization Need for other specified prophylactic vaccination against single bacterial disease Encounter for screening for lung cancer Special screening for malignant neoplasms, colon Encounter for lipid screening for cardiovascular disease Screening for lipoid disorders documented in this encounter [facility] for referral (narrative)* Diagnostic Procedure Only (Routine) - Closed Specialty Diagnoses / Procedures Referred By Jamel t Referred To Contact XR IMAGING Diagnoses Chronic bilateral low back pain without sciatica Procedures XR LUMBAR GENERAL 3V AP/LAT/L5-S1 RADEX SPINE LUMBOSACRAL 2/3 VIEWS Danette Burciaga APRN.SUPERVISOR LATHING [address] [place] [address] [place] [address] Referral ID Status Reason Start Date Expiration Date V isits Requested Visits Authorized [id number] Closed Auto-Generate d Referral 03/12/2023 04/10/2024 1 1 [facility]* Diagnostic Procedure Only (Routine) - Closed Specialty Diagnoses / Procedures Referred By Contac t Referred To Contact XR IMAGING Diagnoses Chronic bilateral low back pain without sciatica Procedures XR LUMBAR GENERAL 3V AP/LAT/L5-S1 RADEX SPINE LUMBOSACRAL 2/3 VIEWS Danette Burciaga, ALTERATION HAND.SUPERVISOR LATHING [address] [place] [address] [place] [address] Referral ID Status Reason Start Date Expiration Date V isits Requested Visits Authorized [id number] Closed Auto-Generate d Referral 03/12/2023 04/10/2024 1 1 [facility] Summary Purpose Family History No Family History Records FoundNo Family History Records FoundNo Family History Records Found Advance Directives No Advanced Directives Records Found Advance Directive Response Recorded Date/ Time Living Will No May 22, 2022 1:07pm Power of Etl Analyst No May 1:07pm Advance Directive Response Recorded Date/ Time Living Will No June 21 1:10pm Power of Etl Analyst No June 21, 2023 1:10pm Chief Complaint and Reason for Visit Chief Complaint BOIL Chief Complaint BACK PAIN Reason for Referral Specialty Diagnoses / Procedures Referred By Contac t Referred To Contact General Surgery Diagnoses Umbilical hernia without obstruction and without gangrene Procedures CONSULT TO GENERAL SURGERY OFFICE/OUTPATIENT [facility] 60 MINUTES Danette Burciaga, [employer] [address] [place] [address] Referral ID Status Reason Start Date Expiration Date Visits Requested Visits Authorized [id number] Authorized PCP Requested Referral 10/15/2023 10/14/2024 1 1 Additional Source Comments (unrecognized sect ion and content) No Status Records FoundNo Status Records FoundNo Status Records Found INFORMATION SOURCE (unrecogn ized section and content) DATE CREATED AUTHOR 02/28/2018 [facility] ([place]) DATE CREATED AUTHOR AUTHOR'S ORGANIZ ATION 12/22/2023 [facility] DATE CREATED AUTHOR AUTHOR'S ORGANIZ ATION 06/13/2025 [facility] Goals (unrecognized section and content) Goals may be documented in a n alternate sectionGoals may be documented in an alternate sectionGoals may be documented in an alternate section Source Comments (unrecognize d section and content) In the event this informatio n is protected by the Federal Confidentiality of Alcohol and Drug Abuse Patient Records regulations: The Federal rules restrict any use of the information to criminally investigate or prosecute any alcohol or drug abuse patient.[facility] the event this information is protected by the Federal Confidentiality of Alcohol and Drug Abuse Patient Records regulations: The Federal rules restrict any use of the information to criminally investigate or prosecute any alcohol or drug abuse patient.[facility] the event this information is protected by the Federal Confidentiality of Alcohol and Drug Abuse Patient Records regulations: The Federal rules restrict any use of the information to criminally investigate or prosecute any alcohol or drug abuse patient.[facility] the event this information is protected by the Federal Confidentiality of Alcohol and Drug Abuse Patient Records regulations: The Federal rules restrict any use of the information to criminally investigate or prosecute any alcohol or drug abuse patient.[facility] the event this information is protected by the Federal Confidentiality of Alcohol and Drug Abuse Patient Records regulations: The Federal rules restrict any use of the information to criminally investigate or prosecute any alcohol or drug abuse patient.[facility] the event this information is protected by the Federal Confidentiality of Alcohol and Drug Abuse Patient Records regulations: The Federal rules restrict any use of the information to criminally investigate or prosecute any alcohol or drug abuse patient.[facility] the event this information is protected by the Federal Confidentiality of Alcohol and Drug Abuse Patient Records regulations: The Federal rules restrict any use of the information to criminally investigate or prosecute any alcohol or drug abuse patient.[facility] Reason for Visit (unrecogniz ed section and content) Reason Onset Date Comments Refill Request 05/31/2023 Reason Comments Physical Would like a letter for [employer] stating that he does not have to for for assistance Also requesting referral to General Surgery for hernia repair Reason Onset Date Comments [facility]PP Hepatology - Treatment Referral 10/15/2023 HCV treatment Reason Comments cough, runny nose Reason Comments Cough Breathing Problem Reason Comments Physical Care Teams (unrecognized sec tion and content) Kindergarten Tutor Relationship Specialty Start Date End Date Jeancarlos Mckeon MD [address] [place] [address] PCP - General Internal Medicine 03/12/23 Team Status: Active Member Role Status Dates No Primary Care Physician Family Provider Active Danette Older CIG[employer] PEGGER, C[employer]GGER-C Primary Care Provider Active Team Status: Inactive Member Role Status Dates Danette Older CIGAR HEAD PEGGER, CIGAR HEAD PEGGER-C Primary Care Provider Active Dr. Bob Thurman , DO Emergency Provider Active Kindergarten Tutor Relationship Specialty Start Date End Date Jeancarlos Mckeon MD [address] [place] [address] PCP - General Internal Medicine 03/12/23 Kindergarten Tutor Relationship Specialty Start Date End Date Jeancarlos Mckeon MD [address] [place] [address] PCP - General Internal Medicine 03/12/23 Kindergarten Tutor Relationship Specialty Start Date End Date Jeancarlos Mckeon MD [address] [place] [address] PCP - General Internal Medicine 03/12/23 Kindergarten Tutor Relationship Specialty Start Date End Date Jeancarlos Mckeon MD [address] [place] [address] PCP - General Internal Medicine 03/12/23 Kindergarten Tutor Relationship Specialty Start Date End Date Jeancarlos Mckeon MD [address] [place], [place] [address] PCP - General Internal Medicine 03/12/23 Kindergarten Tutor Relationship Specialty Start Date End Date Jeancarlos Mckeon MD [address] [place] [address] PCP - General Internal Medicine 03/12/23 Danette Burciaga, CON[facility] [address] [place] [address] Fare Enforcement Officer Internal Medicine 08/18/24 FOR RECORDS PERTAINING TO PATIENTS WHO ARE OR HAVE BEEN ENROLLED IN A CHEMICAL DEPENDENCY/SUBSTANCEABUSE PROGRAM, SOME INFORMATION MAY BE OMITTED. This clinical summary was aggregated from multiple sources. Caution should be exercised in using it in the provision of clinical care. This summary normalizes information from multiple sources, and as a consequence, information in this document may materially change the coding, format and clinical context of patient data. In addition, data may be omitted in some cases. CLINICAL DECISIONS SHOULD BE BASED ON THE PRIMARY CLINICAL RECORDS. [employer] provides no warranty or guarantee of the accuracy or completeness of information in this document.
[2025-07-17 22:44] LABS: Mucous, Urine 0 SEEN /hpf (<or=2+)
[2025-07-17 22:47] LABS: Color, Urine Yellow (Yellow); Glucose, Dipstick Normal (Normal); Ketone-Dipstick Negative (Negative); Leukocyte Esterase-Dipstick 25 /ul (Negative); Nitrite-Dipstick Negative (Negative); Occult Blood-Urine 10 /ul (Negative); Protein-Dipstick Negative (Negative); Specific Gravity, Urine 1.010 (1.002-1.030); Urine Bilirubin Dipstick Negative (Negative)
[2025-07-17 22:58] VITALS: BP 133/94; PULSE 83; RESP 16; O2SAT 98
[2025-07-17 22:58] LABS: Red Blood Cells-Urine 0-5 SEEN /hpf (0-5); Squamous Epithelial Cells - UA 0-5 SEEN /hpf (0-5)
[2025-07-18] VITALS: BP 136/97; PULSE 78; RESP 16; TEMP 36.6; O2SAT 96
--- NOTE | 2025-07-18 00:05 | ED.RN ---
This RN went to discharge the patient, this RN educated the patient on discharge instructions. The patient states well I beg to fucking differ, it is my body and I know I need fucking surgery so I don't agree with this doctor or these tests. This RN instructed the patient to follow up with general surgery and the patient's primary care doctor for a repeat evaluation. The patient states, well I am not very happy that yall aren't doing shit for me. MD notified, no new orders at this time, pt given discharge paperwork.
== END 2025-07-18 00:10 | disposition home or self-care (01) ==
PROVIDERS: Emergency Provider Surgery; PCP Nurse Practitioner; Visit Provider Surgery
DX: K42.9 Umbilical hernia without obstruction or gangrene (principal); F17.210 Nicotine dependence, cigarettes, uncomplicated
CPT/HCPCS: 74177; 80053; 81001; 83605; 83690; 85025; 96361; 96374; 96375; 99283; Q9967; A4216; J2405

== ENCOUNTER 2025-08-10 16:24 | Emergency (ER) | payer MEDICAID, SELFPAY ==
[2025-08-10 16:25] VITALS: BP 143/97; PULSE 90; RESP 16; TEMP 36.1; O2SAT 100
--- NOTE | 2025-08-10 16:44 | EDS_ITS ---
HPI HPI - GI History of Present Illness Chief Complaint: Abd Pain Narrative Narrative: Patient is a 49-year-old male presenting to the emergency department for abdominal pain that started yesterday. Patient has a past medical history of antisocial personality disorder, cervical radiculopathy and a reducible umbilical hernia. Patient states the pain started off as feeling like I got hit by a horse. States today it is much more sore. States the pain is all over. Endorses 1 episode of nonbloody diarrhea today. Endorses nausea with no vomiting. Denies fevers or chills. Denies dysuria or hematuria. Reports he was supposed to follow up with a general surgeon after being seen here on 07/17 but did not call. States it felt like the abdominal pain he had when he presented at that time. States he might have just overdone it, he lives at a [facility] and walks alot. [facility] Medical History Marijuana smoker Home Medications ?Medication ?Instructions ?Recorded ?Last Taken ?Type NK 07/17/25 Unknown History Allergy/AdvReac Type Severity Reaction Status Date / Time nickel Allergy Rash Verified 08/10/25 16:26 poison be extract Allergy Rash Verified 08/10/25 16:26 Surgical History Hx of left knee surgery Hx of hernia repair Social History (Updated 08/10/25 @ 18:44 by Kimberlee Cardozo) housing: apartment Smoking Status: Current every day smoker tobacco type: cigarettes ROS ROS ED ROS Narrative See HPI EXAM Physical Exam Narrative Exam Narrative: Vital signs: Reviewed General: Alert and oriented x 3. No acute distress. Well appearing, nontoxic. HEENT: Head is normocephalic and atraumatic, sinuses nontender, pupils equal round and reactive. Nares are patent. Oropharynx and throat exams normal. Neck: Supple without lymphadenopathy nontender Cardiovascular: Regular rate and rhythm, no murmurs. No rubs or gallops. Normal S1 and S2 Respiratory: Clear to auscultation bilaterally. No wheezes, rales, rhonchi Abdominal: Soft and diffusely tender to palpation throughout. There is a umbilical hernia that is easily reducible with no skin changes noted. Normal bowel sounds. No guarding or rebound. Extremities: No tenderness. No bruising. Normal range of motion. Normal sensation. Skin: No rash or redness. The rest of the physical exam is unremarkable Const Vital Signs: 08/10/25 16:25 08/10/25 18:25 08/10/25 19:12 Temperature 96.9 F L 98.3 F Temperature Source Temporal Pulse Rate 90 77 77 Respiratory Rate 16 16 Blood Pressure 143/97 H 128/80 H 128/80 H Blood Pressure Mean 112 96 96 Pulse Ox 100 99 Oxygen Delivery Method Room Air MDM MDM MDM Narrative Medical decision making narrative: Patient is a 49-year-old male presenting to the emergency department for abdominal pain. Patient was seen and examined. Vitals are stable. Patient resting in bed comfortably no acute distress. Differential includes but is not limited to: Diverticulitis, colitis, gastritis, strangulated hernia, gastroenteritis Patient given morphine and Zofran for symptomatic control, fluid bolus started. CBC with no leukocytosis and a normal hemoglobin. CMP with no significant abnormalities. Lactate within normal limits. Lipase within normal limits. Urinalysis with no evidence of urinary tract infection. CT of the abdomen pelvis shows midline abdominal wall hernia demonstrates mild fat stranding and scant fluid. No bowel loops are contained within the hernia sac. Patient reevaluated and still endorsing diffuse abdominal pain. Not localized around the hernia. Again it is reducible. Lactates within normal limits. No evidence of incarceration or strangulation. Did give the patient Toradol. I discussed with on-call general surgery for follow-up, Dr. Bower. He agrees with management, thinks he can be discharged with follow up with his office. Discussed with patient and significant other at bedside. They are agreeable. I recommend that he call tomorrow for follow-up. Patient discharged from the Emergency Department. I do not feel that the patient's evaluation reveals any acute reason for admission at this time. I instructed them to either follow-up with their primary care physician or promptly return to the Emergency Department for reevaluation should symptoms worsen or new symptoms develop. I explained what symptoms would indicate the need to return to the emergency department. Shared decision making was used. The patient voiced understanding of the treatment plan and is agreeable with it. Clinical impression: Abdominal pain Reducible umbilical hernia History & Record Review Discussion w/independent historian: Patient and Significant other Additional record(s) reviewed:: Prior ED visit and Prior labs Lab Data Attestation: I reviewed the patient's lab results. Labs: Laboratory Results - last 24 hr 08/10/25 08/10/25 08/10/25 16:47 17:00 17:49 WBC 7.8 RBC 4.64 Hgb 14.9 Hct 42.1 MCV 90.7 MCH 32.1 H MCHC 35.4 RDW Std Deviation 42.2 RDW Coeff of Subhash 12.8 Plt Count 265 MPV 9.2 Immature Gran % (Auto) 0.500 Neut % (Auto) 63.6 Lymph % (Auto) 24.3 [place] % (Auto) 7.3 Eos % (Auto) 3.5 Baso % (Auto) 0.8 Absolute Neuts (auto) 5.0 Absolute Lymphs (auto) 1.89 Nucleated RBC % 0 Sodium 137 Potassium 4.2 Chloride 102 Carbon Dioxide 24.6 Anion Gap 10 BUN 13 Creatinine 1.06 Est GFR (MDRD) Non-Af 85 BUN/Creatinine Ratio 12.5 Glucose 110 H Lactic Acid 1.3 Calcium 8.7 Total Bilirubin 0.23 AST 25 ALT 28 Alkaline Phosphatase 75 Total Protein 6.6 Albumin 3.8 Globulin 2.7 Albumin/Globulin Ratio 1.4 Lipase 19 Urine Color Straw Urine Clarity Clear Urine pH 6.0 Ur Specific Plover 1.015 Urine Protein Negative Urine Glucose (UA) Normal Urine Ketones Negative Urine Occult Blood 10 H Urine Nitrite Negative Urine Bilirubin Negative Urine Urobilinogen Normal Ur Leukocyte Esterase Negative Urine RBC 0-5 SEEN Urine WBC 0-5 SEEN Ur Squamous Epith Cells 0 SEEN Urine Bacteria 0 SEEN Urine Mucus 0 SEEN Radiography Diagnostic Testing: Clinical Impression(s) from Imaging Studies Abdomen/Pelvis CT 08/10/25 17:02 IMPRESSION: 1. Midline abdominal wall hernia demonstrates mild fat stranding and scant fluid. No bowel loops are contained within the hernia sac. Reading Location: [facility] Discharge Plan Triage Chief Complaint: Abd Pain ED Provider: Diana Guerrier Dx/Rx/DC Orders Clinical Impression: Abdominal pain, Reducible umbilical hernia Instructions: Abdominal Pain, How a Hernia Develops, ED Hernia (Adult) Prescriptions: No Action NK Primary Care Provider: Danette Burciaga IRRIGATION SERVICE TECHNICIAN Referrals: Dat Bower MD [Med Staff - Active Staff, General Surgery] - As soon as possible Danette Burciaga IRRIGATION SERVICE TECHNICIAN, IRRIGATION SERVICE TECHNICIAN-C [Primary Care Provider, Medical] Activity Restrictions/Additional Instructions: Follow-up with the surgeon listed below as soon as possible. If you develop any worsening abdominal pain or difficulty having bowel movements or passing gas you need to return immediately. Your evaluation in the Emergency Department did not reveal any acute reason for admission. However, I want to emphasize that you may be early in the course of a disease process or illness even if it is not present. For this reason you should follow-up within 24 hours for reevaluation with either your primary care physician or if necessary back here in the Emergency Department. You should return to the Emergency Department immediately if your symptoms worsen or new symptoms develop. Print Language: Kyrgyz Disposition Disposition: Home, Self Care Discharge Date/Time: 08/10/25 19:20
[2025-08-10] MEDS: 0.9% Normal Saline (1000mL) 1,000 ML 1000 ML IV (16:55)
--- NOTE | 2025-08-10 17:02 | CT_ITS ---
PROCEDURE: ABDOMEN/PELVIS W IV CONT ONLY 08/10/2025 REASON FOR EXAM: ABD PAIN TECHNIQUE: Procedure Code: [id number] Modality: CT Procedure: ABDOMEN/PELVIS W IV CONT ONLY Coronal and Sagittal reconstruction series were provided. CONTRAST: Isovue 370 VOLUME: 100 mL One or more dose reduction techniques were used (e.g., Automated exposure control, adjustment of the mA and/or kV according to patient size, use of iterative reconstruction technique. RADIATION DOSE SUMMARY: CTDlvol: 22.42 mGy DLP: 1228.97 mGycm COMPARISON: 07/17/2025 FINDINGS: Lung bases: Unremarkable Liver: Unremarkable Gallbladder: Within normal limits Spleen: Nonenlarged Pancreas: Normal Adrenals: No mass Kidneys: Normal renal sizes. No hydronephrosis. Bladder: Normal Reproductive Organs: Unremarkable Bowel: Stable circumferential mild wall thickening of the distal esophagus. Sigmoid diverticulosis without CT evidence of diverticulitis. Appendix appears normal. Midline supra umbilical fat containing abdominal wall hernia with mild fat stranding and tiny amount of fluid. Appendix: Unremarkable Lymph nodes: No suspicious lymph node enlargement. Vasculature: Mild diffuse atherosclerotic calcifications are noted. Peritoneum / Retroperitoneum: No ascites Bones: Mild degenerative changes in the lumbar spine. CT/Abdomen/Pelvis W IV Cont ONLY IMPRESSION: 1. Midline abdominal wall hernia demonstrates mild fat stranding and scant flui d. No bowel loops are contained within the hernia sac. Reading Location: [id number]
[2025-08-10 17:05] LABS: Hematocrit 42.1 % (40-54); Hemoglobin 14.9 g/dL (13.0-16.5); Immature Granulocytes Count 0.040 X10^3/uL (0.0-0.0); Mean Corp Hgb Conc 35.4 g/dL (32-36); Mean Corpuscular Volume 90.7 fL (80-94); Mean Platelet Vol. 9.2 fl (6.2-12.0); NRBC Flagged by Analyzer 0 % (0-5); Platelet Count 265 K/mm3 (150-450); RBC Distribution Width CV 12.8 % (11.6-14.6); RBC Distribution Width SD 42.2 fl (35.1-43.9); Red Blood Count 4.64 M/mm3 (4.6-6.2); White Blood Count 7.8 K/mm3 (4.4-11.0)
[2025-08-10 17:20] LABS: Lipase 19 U/L (13-75)
[2025-08-10 17:21] LABS: AST(SGOT) 25 U/L (<=37); Alanine Aminotransfer ALT/SGPT 28 U/L (<=46); Albumin, Serum 3.8 g/dL (3.5-5.0); Alkaline Phosphatase 75 U/L (40-129); Anion Gap 10 (5-15); BUN 13 mg/dL (4-19); BUN/Creat Ratio 12.5 RATIO (10-20); Calcium,Total 8.7 mg/dL (7.6-11.0); Carbon Dioxide 24.6 mmol/L (21.0-32.0); Chloride 102 mmol/L (98-108); Globulin 2.7 g/dL (2.2-4.2); Glucose 110 mg/dL (70-99); Potassium 4.2 mmol/L (3.3-5.1)
[2025-08-10 18:08] LABS: Mucous, Urine 0 SEEN /hpf (<or=2+); Squamous Epithelial Cells - UA 0 SEEN /hpf (0-5)
[2025-08-10 18:25] VITALS: BP 128/80; PULSE 77
[2025-08-10 18:32] LABS: Color, Urine Straw (Yellow); Glucose, Dipstick Normal (Normal); Ketone-Dipstick Negative (Negative); Leukocyte Esterase-Dipstick Negative /ul (Negative); Nitrite-Dipstick Negative (Negative); Occult Blood-Urine 10 /ul (Negative); Protein-Dipstick Negative (Negative); Specific Gravity, Urine 1.015 (1.002-1.030); Urine Bilirubin Dipstick Negative (Negative)
[2025-08-10 18:45] LABS: Red Blood Cells-Urine 0-5 SEEN /hpf (0-5)
[2025-08-10 19:12] VITALS: BP 128/80; PULSE 77; RESP 16; TEMP 36.8; O2SAT 99
== END 2025-08-10 19:20 | disposition home or self-care (01) ==
PROVIDERS: Emergency Provider Student in an Organized Health Care Education/Training Program; PCP Nurse Practitioner; Visit Provider Student in an Organized Health Care Education/Training Program
DX: R10.9 Unspecified abdominal pain (principal); K42.9 Umbilical hernia without obstruction or gangrene; F17.210 Nicotine dependence, cigarettes, uncomplicated
CPT/HCPCS: 74177; 80053; 81001; 83605; 83690; 85025; 96361; 96374; 96375; 99283; Q9967; A4216; J2405